=== PATIENT | male | born 1960 | race Caucasian/White ===

== ENCOUNTER 2023-06-09 06:05 | Day surgery (SDC) | payer OTHER ==
[~2023-06-09] VITALS: Ht 167.6 cm; Wt 78.9 kg
[2023-06-09] MEDS ORDERED: MIDAZOLAM 5 MG/5 ML VIAL ONE (07:33)
[2023-06-09] MEDS ORDERED: fentaNYL citrate 0.05 MG/ML VIAL ONE (07:33)
[2023-06-09] MEDS ORDERED: LIDOCAINE 2% 100 MG/5 ML UJET TP ONE (07:34)
[2023-06-09] MEDS ORDERED: MIDAZOLAM 2 MG/2 ML VIAL IVP ONE (08:30)
[2023-06-09] MEDS ORDERED: fentaNYL citrate 0.05 MG/ML VIAL IVP ONE (08:30)
== END 2023-06-09 10:10 | disposition home or self-care (01) ==
LOC: MOR 06:05 → MMU 06:42 → MOR 10:10
PROVIDERS: ATTEND Internal Medicine Gastroenterology
DX: R14.0 Abdominal distension (gaseous) (principal); K21.9 Gastro-esophageal reflux disease without esophagitis; K29.50 Unspecified chronic gastritis without bleeding; I10 Essential (primary) hypertension; K31.7 Polyp of stomach and duodenum; K64.9 Unspecified hemorrhoids; Z79.899 Other long term (current) drug therapy
CPT/HCPCS: 43239; 43251; 45378; 82948; 88305; 88312; 88313; 88342; J2250; J3010

== ENCOUNTER 2023-12-30 22:50 | Emergency (ER) | payer OTHER ==
[~2023-12-30] VITALS: Ht 167.6 cm; Wt 77.1 kg
[2023-12-30 22:56] VITALS: BP 136/82; PULSE 71; RESP 14; TEMP 97.7; O2SAT 99
[2023-12-31 00:31] LABS: BASOPHILS % (AUTO) 0.6 % (0.0-2.0); EOSINOPHILS # (AUTO) 0.2 K/uL (0-0.4); EOSINOPHILS % (AUTO) 2.5 % (0.0-4.0); HEMOGLOBIN 14.4 g/dL (12.0-18.0); LYMPHOCYTES # (AUTO) 1.7 K/uL (2.0-11.5); LYMPHOCYTES % (AUTO) 25.5 % (20.5-51.1); MEAN CORPUSCULAR HEMOGLOBIN 32 pg (27-31); MEAN CORPUSCULAR HGB CONC 34 g/dL (33-37); MONOCYTES # (AUTO) 0.4 K/uL (0.8-1.0); MONOCYTES % (AUTO) 6.8 % (1.7-9.3); NEUTROPHILS # (AUTO) 4.3 K/uL (1.8-7.7); NEUTROPHILS % (AUTO) 64.6 % (42.2-75.2); PLATELET COUNT (AUTO) 169 K/uL (140-450); RED BLOOD CELL COUNT(AUTO) 4.51 MIL/uL (4.20-6.10); RED CELL DISTRIBUTION WIDTH 13.3 % (11.6-13.7); WHITE BLOOD COUNT (AUTO) 6.6 K/uL (4.8-10.8)
[2023-12-31] MEDS: ENALAPRILAT 2.5 MG/2 ML VIAL IVP ONE (00:38)
[2023-12-31 00:53] LABS: ANION GAP 11.7 (8-16); CARBON DIOXIDE 28.7 mmol/L (21-32); POTASSIUM 3.4 mmol/L (3.5-5.1)
[2023-12-31] MEDS ORDERED: LISI20TA29 PO (02:00)
[2023-12-31] MEDS ORDERED: ATOR20TA PO (02:00)
[2023-12-31 02:13] VITALS: BP 107/62; PULSE 66; RESP 14; TEMP 97.7; O2SAT 99
== END 2023-12-31 02:14 | disposition home or self-care (01) ==
LOC: MED 22:50
DX: I10 Essential (primary) hypertension (principal); E11.9 Type 2 diabetes mellitus without complications; Z91.148 Patient's other noncompliance with medication regimen for other reason; Z86.73 Personal history of transient ischemic attack (TIA), and cerebral infarction without residual deficits
CPT/HCPCS: 36415; 80048; 84484; 85025; 93005; 96374; 99284; J3490